=== PATIENT | female | born 1955 | race Hispanic/Latino ===

== ENCOUNTER → 2017-07-14 | Day surgery (SDC) | payer BC ==
[2017-07-12 11:53] LABS: BASOPHILS % 0.7 % (0.0-1.0); EOSINOPHILS # (AUTO) 0.1 (0.0-0.4); HEMATOCRIT 39.2 % (34.2-44.1); HEMOGLOBIN 13.3 g/dL (12.0-16.0); LYMPHOCYTES # (AUTO) 2.4 (1.0-3.2); LYMPHOCYTES % 40.7 % (18.0-39.1); MEAN CORPUSCULAR HEMOGLOBIN 29.4 pg (28-32); MEAN CORPUSCULAR HGB CONC 33.9 g/dL (31-35); MEAN CORPUSCULAR VOLUME 86.5 fL (81-99); MONOCYTES # (AUTO) 0.3 (0.2-0.8); MONOCYTES % 5.6 % (4.4-11.3); NEUTROPHILS # (AUTO) 3.1 (2.1-6.9); NEUTROPHILS % 51.8 % (38.7-80.0); PLATELET COUNT 191 x10e3/uL (140-360); RED BLOOD COUNT 4.53 x10e6/uL (3.6-5.1); RED CELL DISTRIBUTION WIDTH 13.2 % (11.7-14.4)
--- NOTE | 2017-07-12 12:14 | Diagnostic Imaging Report ---
PROCEDURE: Frontal and lateral views of the chest. COMPARISON: None. INDICATIONS: PREOPERATIVE CHEST XRAY FOR RIGHT SHOULDER SURGERY FINDINGS: Lines/tubes: None. Lungs: The lungs are well inflated and clear. There is no evidence of pneumonia or pulmonary edema. Pleura: There is no pleural effusion or pneumothorax. Heart and mediastinum: The heart and the mediastinum are normal. Bones: No acute bony abnormality. Degenerative changes of the thoracic spine. Anterior cervical spine fusion hardware. IMPRESSION: No acute radiographic abnormality. Dictated by: Eyal Ochoa M.D. on 07/12/2017 at 12:22 Electronically approved by: Eyal Ochoa M.D. on 07/12/2017 at 12:22
[2017-07-12 12:15] LABS: ANION GAP 9.4 mmol/L (8-16); BLOOD UREA NITROGEN 14 mg/dL (7-26); BUN/CREATININE RATIO 21 (6-25); CALCIUM 9.1 mg/dL (8.4-10.2); CARBON DIOXIDE 30 mmol/L (22-29); CHLORIDE 104 mmol/L (98-107); CREATININE, SERUM 0.67 mg/dL (0.57-1.11); EST GLOMERULAR FILTRATION RATE > 60 ML/MIN (60-); GLUCOSE 130 mg/dL (74-118); POTASSIUM 4.4 mmol/L (3.5-5.1); SODIUM 139 mmol/L (136-145)
[~2017-07-14] MED LIST: AMITRIPTYLINE H10 MG PO; ATENOLOL50 MG PO; CALCIUM 600 +1 EAC8 PO; CEFAZOLIN SOD 2 GM/D5W 50ML 50 ML IV ONE; CENTRUM SILVER1 EACH PO; DEXAMETHASONE SOD PHOS INJ 4 MG/ML VIAL ONE; DYAZIDE 37.5-21 EACH PO; EPHEDRINE SULFATE INJ 50 MG/10 ML SYR ONE; ETODOLAC500 M1 PO; FENTANYL CITRATE/PF 100MCG/2 ML INJ ONE; HYDROCODON-ACE1 EAC4 PO; KETOROLAC TROMETHAMINE 30 MG/ML VIAL ONE; LIDOCAINE HCL 2% LOCAL INJ 5 ML SDV VIAL INJ ONE; MELOXICAM15 MG PO; METFORMIN HCL500 MG PO; MIDAZOLAM HCL 2 MG/2 ML VIAL ONE; MIRALAX17 GM PO; NAPROSYN500 MG PO; NORCO 10-325 T1 EACH PO; OCUVITE TABLET1 EAC1 PR; OMEGA 3 1,0001 EACH PO; ONDANSETRON HCL INJ 2 MG/ML VIAL ONE; OXYBUTYNIN CHLOR5 M1 PO; PHENTERMINE H37.5 MG PO; PRAVASTATIN SOD20 MG PO; PRAVASTATIN SOD40 MG PO; PROPOFOL IV EMULSION 10 MG/ML 20 ML VIAL ONE; QUETIAPINE FUMA25 MG PO; ROCURONIUM BROMIDE 10 MG/ML 5ML VIAL ONE; ROPIVACAINE 0.5% 5 MG/ML 30 ML SDV ONE; SERTRALINE HCL100 MG PO; SEVOFLURANE INHAL SOLN 250 ML PEN BTL ONE; SUMATRIPTAN SUC25 MG PO; SUMATRIPTAN SUCC PO; TIZANIDINE HCL4 M1 PO; VALACYCLOVIR500 MG PO; VESICARE10 MG PO
--- NOTE | 2017-07-15 03:50 | Operative Report ---
DATE OF PROCEDURE: July 14, 2017 PREOPERATIVE DIAGNOSES 1. Right shoulder rotator cuff tear. 2. Right shoulder acromioclavicular joint arthrosis. POSTOPERATIVE DIAGNOSES 1. Right shoulder rotator cuff tear. 2. Right shoulder acromioclavicular joint arthrosis. OPERATIONS/PROCEDURES PERFORMED 1. The patient underwent a right shoulder examination under anesthesia. 2. Right shoulder arthroscopy. 3. Right shoulder debridement of synovitis. 4. Right shoulder arthroscopic rotator cuff reconstruction. 5. Right shoulder arthroscopic subacromial decompression and acromioplasty. 6. Right shoulder arthroscopic distal clavicle resection. DIGITAL STRATEGY MANAGER: Lizzeth Trujillo. ANESTHESIA: General endotracheal intubation anesthesia. IV FLUIDS: Per anesthesia record. BRIEF DESCRIPTION OF OPERATIVE PROCEDURE: Ms. Vasquez was taken to the operating room and placed in the supine position on the operating table. Following the induction of general anesthesia, as well as endotracheal intubation, the patient's right upper extremity was examined under anesthesia. She was found to have full passive range of motion of the shoulder joint. There was no evidence of instability. The patient's upper extremity was prepped and draped in a standard surgical fashion. Standard posterolateral and anterior portals were created without difficulty. The scope was placed within the shoulder joint atraumatically. Examination of the glenohumeral articulation demonstrated no evidence of chondromalacia of the articulating surfaces. There was synovitis in the shoulder joint. There was a full-thickness rotator cuff tear. A shaver was placed in the shoulder joint and the synovitis was debrided. The rotator cuff was also debrided at this time. The insertion site was debrided to a bleeding bony bed. The shoulder was inflated with sterile normal saline. Scope was placed in the subacromial space, and examination of the subacromial space demonstrated significant bursal inflammation. A lateral portal was created in an outside-in technique. A bursectomy was performed. The rotator cuff tear was easily identified. The shaver was used to further debride the insertion site. Triple loaded suture anchor was inserted into the greater tuberosity of the humerus, and suture arms from the anchor were woven through the rotator cuff tissue. The rotator cuff tissue was then advanced and tied firmly into its normal insertion site. The coracoacromial ligament was resected. An aggressive acromioplasty was then performed. The shaver was then used to isolate the AC joint. The anterior portal was then passed within the subacromial space. The shaver was placed through the anterior portal, and 1-cm section of the distal clavicle was resected. Scope was then transferred to the anterior portal, and the distal clavicle resection was confirmed arthroscopically. Hemostasis was obtained. The shoulder was deflated of its sterile normal saline. All wounds were closed. Sterile dressings were applied. The patient was provided a shoulder immobilizer, awakened and taken to the postanesthesia care unit in stable condition. Lizzeth Trujillo acted as customer marketing assistant for this case and was necessary for both prepping and draping of the patient, as well as positioning the arm and passage of suture that allowed this case to be successful. Job#: [id number] [email or web address]
== END | disposition home or self-care (01) ==
LOC: OR 07:30
PROVIDERS: ATTEND Specialist
DX: M75.121 Complete rotator cuff tear or rupture of right shoulder, not specified as traumatic (principal); M19.011 Primary osteoarthritis, right shoulder; M65.811 Other synovitis and tenosynovitis, right shoulder; E11.9 Type 2 diabetes mellitus without complications; I10 Essential (primary) hypertension; R00.1 Bradycardia, unspecified; I34.1 Nonrheumatic mitral (valve) prolapse; F17.210 Nicotine dependence, cigarettes, uncomplicated; Z01.810 Encounter for preprocedural cardiovascular examination; Z01.812 Encounter for preprocedural laboratory examination; Z01.818 Encounter for other preprocedural examination; Z68.33 Body mass index [BMI] 33.0-33.9, adult
CPT/HCPCS: 29824; 29826; 29827; 36415 ×2; 71020; 80048; 82948; 85025; 93005; J1100; J1885; J2001; J2250; J2405; J2795